=== PATIENT | female | born 1955 | race Caucasian/White ===

== ENCOUNTER 2020-02-03 09:07 | Emergency (ER) | payer OTHER ==
--- OUTSIDE RECORDS SUMMARY | 2020-02-03 09:34 | XMS REPORT | Clinical Summary ---
:1955 Author Organization [facility] Address [address] [place] [address] Care Team Providers Name Role Phone Gauri Singleton MD Primary Care Provider Allergies No Known Allergies Medications Medication Sig Dispensed Refills Start Date End Date Status metoprolol (LOPRESSOR) Take 25 mg by 0 Active 25 MG tablet mouth 2 (two) times daily. losartan-hydroCHLOROthi Take 1 tablet by 0 Active azide (HYZAAR) 100-25 mouth daily. mg per tablet lisinopril Take 10 mg by 0 Activ e (PRINIVIL,ZESTRIL) 10 mouth daily. MG tablet budesonide-formoterol Inhale 2 puffs by 0 Active (SYMBICORT) 160-4.5 mouth via inhaler mcg/actuation inhaler 2 (two) times daily. atorvastatin (LIPITOR) Take 10 mg by 0 Active 10 MG tablet mouth daily. 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 Never 05/30/2018 How many drinks containing alcohol do you have on a typical Not asked day when you are drinking? How often do you have six or more drinks on one occasion? No t asked Sex Assigned at Date Recorded Not on file Last Filed Vital Signs Not on file Plan of Treatment Not on file Implants Implanted Type Area Break Up Worker Device Shelf Model / Serial / Identifier Expiration Lot Date Stent Bili Duodenal [id number] - [id number] Stents-P [employer] 05/01/2019 3434 / Implanted: Qty: 1 on 06/21/2018 by Marlene Romero MD at [facility] eriphera 087 [id number] / [id number] Results Not on fileafter 02/02/2019 Insurance Payer Benefit Plan / Subscriber ID Effective Dates Phone Addre ss Type Group BLUE BCBS ADV HMO [id number] 2018-Presen [phone] [id number] CROSS/BLUE EXCHANGE t 2 [facility] [id number] Advance Directives For more information, please contact: [phone] Code Status Date Activated Date Inactivated Comments Full Code 06/19/2018 12:15 PM 06/23/2018 5:46 PM This code status was determined by: Patient Full Code 06/19/2018 6:40 AM 06/19/2018 12:15 PM This code status was determined by: Patient
--- OUTSIDE RECORDS SUMMARY | 2020-02-03 09:35 | XMS REPORT | Continuity of Care Document ---
:1955 Author Organization [facility] t Address [address] [place] [address] [address] [place] [address] Care Team Providers Name Role Phone Gauri Mcgee MD Primary Care Physician ANIL Attending Clinician Unavailable ANIL Admitting Clinician Unavailable Problems Condition Condition Condition Status Onset Resolution Last Treating Co mments Source Name Details Category Date Date Treatment Clinician Date Cholecysto Cholecysto Disease Active [facility] 00 Center Allergies, Adverse Reactions, Alerts This patient has no known allergies or adverse reactions. Social History Social Habit Start Date Stop Date Quantity Comments Source History SDOH [facility] - Alcohol Std Drinks Medica l Center History SDOH [facility] - Alcohol Binge Medical Kendra ter Sex Assigned At [facility] Cigarettes smoked 2018-08-14 2018-08-14 [facility] - current (pack per 00:00:00 00:00:00 Medical Center day) - Reported Cigarette 2018-08-14 2018-08-14 [facility] - pack-years 00:00:00 00:00:00 [facility] Tobacco use and 2018-08-14 2018-08-[address] [facility] - exposure 00:00:00 00:00:00 [facility] Alcohol intake 2018-08-14 2018-08-14 [facility] - [facility] 00:00:00 alcohol (finding) [facility] History SDOH 2018-05-30 2018-05-[address] [facility] - Alcohol Frequency 00:00:00 00:00:00 [facility] Alcohol Comment 2018-05-30 2018-05-[address] [facility] - 00:00:00 00:00:00 [facility] Smoking Status Start Date Stop Date Source Current every day smoker 2018-08-14 00:00:[address] [facility] Medications Ordered Filled Start Stop Current Ordering Indication Dosage Frequency Signature Comments Components Source Medication Medication Date Date Medication? Clinician (SIG) Name Name metoprolol Yes 25mg Q.5D Take [address] (LOPRESSOR) 5-01 by mouth 2 [facility] - 25 MG 15:16: (two) Medical tablet 59 times Center daily. losartan-hy Yes 1{tbl} QD Take [address] droCHLOROth 5-01 tablet by Kandis es - iazide 15:16: mouth Medical (HYZAAR) 59 daily. Center 100-25 mg per tablet lisinopril Yes 10mg QD Take [address] (PRINIVIL,Z 5-01 by mouth Luke s - ESTRIL) 10 15:16: daily. Medic al MG tablet 59 Center budesonide- Yes 2{puff} Q.5D Inhale [address] formoterol 5-01 puffs by [facility] - (SYMBICORT) 15:16: mouth via M edical 160-4.5 59 inhaler 2 Center mcg/actuati (two) on inhaler times daily. atorvastati Yes 10mg QD Take [address] [facility] (LIPITOR) 5-01 by mouth Luke s - 10 MG 15:16: daily. Medical tablet 59 Center Procedures This patient has no known procedures. Results Test Description Test Time Test Comments Results Result Sourc e Comments [place], ERCP 2018-08-14 Reason for FINAL REPORT PATIENT ID: 16:17:00 exam:->disorde [id number] ERCP, r of bile duct 08/14/2018 Clinical History: Bile duct disorder Impression: Intraoperative images are obtained. The radiologist is not present during the procedure. Fluoroscopy was not performed by the undersigned. Images are presented for interpretation at the completion of the procedure. Please refer to the procedure report for more details. Three images submitted demonstrating interrogation of the common duct with fluoroscopy time of 2.5 minutes. Signed: Gely Arguello MDReport Verified Date/Time: 08/14/2018 16:17:18 Reading Location: [address] Radiology Reading Room UE EXAM 2018-06-27 Surgical Pathology 15:23:00 Report Case: [id number] Authorizing Provider: Eugenio Fatima MD Collected: 06/19/2018 1034 Ordering Location: [facility] PERIOPERATIVE Received: 06/19/2018 1044 SERVICES Pathologist: Dianne Irene MD Specimen: Gallbladder, Ink = Cystic Duct A. GALLBLADDER, OPEN CHOLECYSTECTOMY AND CLOSURE OF CHOLECYSTODUODENAL FISTULA: - GALLBLADDER WITH TRANSMURAL CHRONIC INFLAMMATION, FOREIGN BODY GIANT CELL REACTION AND FORMATION OF FISTULA TRACT - TWO BENIGN LYMPH NODES (0/2) - NEGATIVE FOR DYSPLASIA AND MALIGNANCY Signing Pathologist Direct Phone Line: [phone] ly signed by Dianne Irene MD on 06/27/2018 at 3:23 [id number] yordy, fistulaGallbladder = cystic ductThe specimen is received fresh labeled "gallbladder" and consists of a 4.5 x 2.5 x 1.5 cm gallbladder with black ink designated by the surgeon as "cystic duct margin". The serosa is smooth and glistening with 1 x 1 x 1 cm subserosal lymph node. On opening the mucosal lining is smooth and there is fistula tract in the fundus of the gallbladder measuring 0.8 cm in diameter . The lumen of the fistula is smooth. There is no mass or stone identified grossly. The wall thickness of the gallblader is 0.8 cm in the thickened area. Ink code: black, cystic duct margin; green, cystic duct lumen. Section code: A1FS, cystic duct margin; A2FS and A3FS, possible fistula tract; A4FS, lymph node civil rights representative. A5FS, gallbladder, wall thicknend; A6, margin fistula, ink side down; A8, remainder of lymph node. The remainder of the specimen is serially sectioned and submitted entirely in cassettes A8 through A19. WA/plPATHOLOGY DIAGNOSIS:GALLBLADDER, CHOLECYSTECTOMY, A1FS: - CYSTIC DUCT MARGIN NEGATIVE FOR MALIGNANCY A2FS, A3FS: - POSSIBLE FISTULA TRACT - NEGATIVE FOR [id number]: LYMPH NODE, DOOR TO DOOR SALESPERSON SECTION: - ONE BENIGN LYMPH [id number]: GALLBLADDER WALL, THICKENED: - NEGATIVE FOR MALIGNANCY PHOSPHORUS 2018-06-23 07:14:00 Test Item Value Reference Range Interpretation Comme nts PHOSPHORUS (BEAKER) (test code = 604) 3.0 mg/dL 2.3-4.7 [id number] 07:14:00 Test Item Value Reference Range Interpretation Comments MAGNESIUM (BEAKER) (test code = 1.8 mg/dL 1.6-2.6 627) BASIC METABOLIC [id number] 07:14:00 Test Item Value Reference Range Interpretation Comments SODIUM (BEAKER) 135 meq/L 136-145 L (test code = 381) POTASSIUM (BEAKER) 4.1 meq/L 3.5-5.1 (test code = 379) CHLORIDE (BEAKER) 103 meq/L 98-107 (test code = 382) CO2 (BEAKER) (test 26 meq/L 22-29 code = 355) BLOOD UREA NITROGEN 10 mg/dL 7-21 (BEAKER) (test code = 354) CREATININE (BEAKER) 0.69 mg/dL 0.57-1.25 (test code = 358) GLUCOSE RANDOM 121 mg/dL 70-105 H (BEAKER) (test code = 652) CALCIUM (BEAKER) 8.7 mg/dL 8.4-10.2 (test code = 697) EGFR (BEAKER) (test 86 mL/min/1.73 ESTIMA JASON GFR IS code = 1092) sq m NOT ACCURATE CREATININE CLEARANCE IN PREDICTING GLOMERULAR FILTRATION RATE . ESTIMATED GFR I S NOT APPLICABLE FOR DIALYSIS PATIEN TS. HEPATIC FUNCTION [id number] 07:14:00 Test Item Value Reference Range Interpretation Comments TOTAL PROTEIN (BEAKER) (test code = 5.9 gm/dL 6.0-8.3 L 770) ALBUMIN (BEAKER) (test code = 1145) 2.9 g/dL 3.5-5.0 L BILIRUBIN TOTAL (BEAKER) (test code 0.8 mg/dL 0.2-1.2 = 377) BILIRUBIN DIRECT (BEAKER) (test 0.5 mg/dL 0.1-0.5 code = 706) ALKALINE PHOSPHATASE (BEAKER) (test 77 U/L 40-150 code = 346) AST (SGOT) (BEAKER) (test code = 24 U/L 5-34 353) ALT (SGPT) (BEAKER) (test code = 26 U/L 6-55 347) CBC W/PLT COUNT & AUTO [id number] 06:43:00 Test Item Value Reference Range Interpretation Comments WHITE BLOOD CELL COUNT (BEAKER) 15.5 K/ L 3.5-10.5 H (test code = 775) RED BLOOD CELL COUNT (BEAKER) 3.63 M/ L 3.93-5.22 L (test code = 761) HEMOGLOBIN (BEAKER) (test code = 11.1 GM/DL 11.2-15.7 L 410) HEMATOCRIT (BEAKER) (test code = 35.9 % 34.1-44.9 411) MEAN CORPUSCULAR VOLUME (BEAKER) 98.9 fL 79.4-94.8 H (test code = 753) MEAN CORPUSCULAR HEMOGLOBIN 30.6 pg 25.6-32.2 (BEAKER) (test code = 751) MEAN CORPUSCULAR HEMOGLOBIN CONC 30.9 GM/DL 32.2-35.5 L (BEAKER) (test code = 752) RED CELL DISTRIBUTION WIDTH 12.9 % 11.7-14.4 (BEAKER) (test code = 412) PLATELET COUNT (BEAKER) (test 388 K/CU MM 150-450 code = 756) MEAN PLATELET VOLUME (BEAKER) 10.4 fL 9.4-12.3 (test code = 754) NUCLEATED RED BLOOD CELLS 0 /100 WBC 0-0 (BEAKER) (test code = 413) NEUTROPHILS RELATIVE PERCENT 61 % (BEAKER) (test code = 429) LYMPHOCYTES RELATIVE PERCENT 26 % (BEAKER) (test code = 430) MONOCYTES RELATIVE PERCENT 6 % (BEAKER) (test code = 431) EOSINOPHILS RELATIVE PERCENT 6 % (BEAKER) (test code = 432) BASOPHILS RELATIVE PERCENT 1 % (BEAKER) (test code = 437) NEUTROPHILS ABSOLUTE COUNT 9.41 K/ L 1.56-6.13 H (BEAKER) (test code = 670) LYMPHOCYTES ABSOLUTE COUNT 4.03 K/ L 1.18-3.74 H (BEAKER) (test code = 414) MONOCYTES ABSOLUTE COUNT (BEAKER) 0.85 K/ L 0.24-0.36 H (test code = 415) EOSINOPHILS ABSOLUTE COUNT 0.98 K/ L 0.04-0.36 H (BEAKER) (test code = 416) BASOPHILS ABSOLUTE COUNT (BEAKER) 0.10 K/ L 0.01-0.08 H (test code = 417) IMMATURE GRANULOCYTES-RELATIVE 1 % 0-1 PERCENT (BEAKER) (test code = 2801) BASIC METABOLIC [id number] 07:39:00 Test Item Value Reference Range Interpretation Comments SODIUM (BEAKER) 138 meq/L 136-145 (test code = 381) POTASSIUM (BEAKER) 4.4 meq/L 3.5-5.1 (test code = 379) CHLORIDE (BEAKER) 103 meq/L 98-107 (test code = 382) CO2 (BEAKER) (test 28 meq/L 22-29 code = 355) BLOOD UREA NITROGEN 10 mg/dL 7-21 (BEAKER) (test code = 354) CREATININE (BEAKER) 0.72 mg/dL 0.57-1.25 (test code = 358) GLUCOSE RANDOM 115 mg/dL 70-105 H (BEAKER) (test code = 652) CALCIUM (BEAKER) 9.0 mg/dL 8.4-10.2 (test code = 697) EGFR (BEAKER) (test 82 mL/min/1.73 ESTIMA JASON GFR IS code = 1092) sq m NOT ACCURATE CREATININE CLEARANCE IN PREDICTING GLOMERULAR FILTRATION RATE . ESTIMATED GFR I S NOT APPLICABLE FOR DIALYSIS PATIEN TS. [id number] 06:49:00 Test Item Value Reference Range Interpretation Comments MAGNESIUM (BEAKER) (test code = 2.3 mg/dL 1.6-2.6 627) HEPATIC FUNCTION [id number] 06:49:00 Test Item Value Reference Range Interpretation Comments TOTAL PROTEIN (BEAKER) (test code = 6.6 gm/dL 6.0-8.3 770) ALBUMIN (BEAKER) (test code = 1145) 3.2 g/dL 3.5-5.0 L BILIRUBIN TOTAL (BEAKER) (test code 0.8 mg/dL 0.2-1.2 = 377) BILIRUBIN DIRECT (BEAKER) (test 0.5 mg/dL 0.1-0.5 code = 706) ALKALINE PHOSPHATASE (BEAKER) (test 88 U/L 40-150 code = 346) AST (SGOT) (BEAKER) (test code = 36 U/L 5-34 H 353) ALT (SGPT) (BEAKER) (test code = 36 U/L 6-55 347) [id number] 06:48:00 Test Item Value Reference Range Interpretation Comments PHOSPHORUS (BEAKER) (test code = 2.7 mg/dL 2.3-4.7 604) CBC W/PLT COUNT & AUTO [id number] 06:39:00 Test Item Value Reference Range Interpretation Comments WHITE BLOOD CELL COUNT (BEAKER) 20.8 K/ L 3.5-10.5 H (test code = 775) RED BLOOD CELL COUNT (BEAKER) 3.80 M/ L 3.93-5.22 L (test code = 761) HEMOGLOBIN (BEAKER) (test code = 11.8 GM/DL 11.2-15.7 410) HEMATOCRIT (BEAKER) (test code = 37.8 % 34.1-44.9 411) MEAN CORPUSCULAR VOLUME (BEAKER) 99.5 fL 79.4-94.8 H (test code = 753) MEAN CORPUSCULAR HEMOGLOBIN 31.1 pg 25.6-32.2 (BEAKER) (test code = 751) MEAN CORPUSCULAR HEMOGLOBIN CONC 31.2 GM/DL 32.2-35.5 L (BEAKER) (test code = 752) RED CELL DISTRIBUTION WIDTH 13.0 % 11.7-14.4 (BEAKER) (test code = 412) PLATELET COUNT (BEAKER) (test 411 K/CU MM 150-450 code = 756) MEAN PLATELET VOLUME (BEAKER) 10.5 fL 9.4-12.3 (test code = 754) NUCLEATED RED BLOOD CELLS 0 /100 WBC 0-0 (BEAKER) (test code = 413) NEUTROPHILS RELATIVE PERCENT 66 % (BEAKER) (test code = 429) LYMPHOCYTES RELATIVE PERCENT 23 % (BEAKER) (test code = 430) MONOCYTES RELATIVE PERCENT 5 % (BEAKER) (test code = 431) EOSINOPHILS RELATIVE PERCENT 5 % (BEAKER) (test code = 432) BASOPHILS RELATIVE PERCENT 1 % (BEAKER) (test code = 437) NEUTROPHILS ABSOLUTE COUNT 13.85 K/ L 1.56-6.13 H (BEAKER) (test code = 670) LYMPHOCYTES ABSOLUTE COUNT 4.70 K/ L 1.18-3.74 H (BEAKER) (test code = 414) MONOCYTES ABSOLUTE COUNT (BEAKER) 0.95 K/ L 0.24-0.36 H (test code = 415) EOSINOPHILS ABSOLUTE COUNT 0.98 K/ L 0.04-0.36 H (BEAKER) (test code = 416) BASOPHILS ABSOLUTE COUNT (BEAKER) 0.13 K/ L 0.01-0.08 H (test code = 417) IMMATURE GRANULOCYTES-RELATIVE 1 % 0-1 PERCENT (BEAKER) (test code = 2801) AR, [id number] 19:52:00Reason for exam:->Bile leakFINAL REPORT Intraoperative fluoroscopy. CLINICAL HISTORY: Bile leak. FINDINGS : Four fluoroscopically acquired images were acquired by the referring physician. An intraoperative verbal report was not requested. Fluoroscopy was not performed by the undersigned. Fluoroscopy time: 90 seconds. Four images. Signed: Dain Owen MDReport Verified Date/Time: 06/21/2018 19:52:37 Sabina jasso Location: [facility] [id number] [facility] Consult Reading Room CBC W/PLT COUNT & AUTO [id number] 08:03:00 Test Item Value Reference Range Interpretation Comments WHITE BLOOD CELL COUNT (BEAKER) 26.8 K/ L 3.5-10.5 H (test code = 775) RED BLOOD CELL COUNT (BEAKER) 4.04 M/ L 3.93-5.22 (test code = 761) HEMOGLOBIN (BEAKER) (test code = 12.4 GM/DL 11.2-15.7 410) HEMATOCRIT (BEAKER) (test code = 40.4 % 34.1-44.9 411) MEAN CORPUSCULAR VOLUME (BEAKER) 100.0 fL 79.4-94.8 H (test code = 753) MEAN CORPUSCULAR HEMOGLOBIN 30.7 pg 25.6-32.2 (BEAKER) (test code = 751) MEAN CORPUSCULAR HEMOGLOBIN CONC 30.7 GM/DL 32.2-35.5 L (BEAKER) (test code = 752) RED CELL DISTRIBUTION WIDTH 13.2 % 11.7-14.4 (BEAKER) (test code = 412) PLATELET COUNT (BEAKER) (test 426 K/CU MM 150-450 code = 756) MEAN PLATELET VOLUME (BEAKER) 10.0 fL 9.4-12.3 (test code = 754) NUCLEATED RED BLOOD CELLS 0 /100 WBC 0-0 (BEAKER) (test code = 413) (CELLAVISION MANUAL DIFF)2018-06-21 08:03:00 Test Item Value Reference Range Interpretation Comments NEUTROPHILS - REL 75 % (CELLAVISION)(BEAKER) (test code = 2816) LYMPHOCYTES - REL 13 % (CELLAVISION)(BEAKER) (test code = 2817) MONOCYTES - REL 3 % (CELLAVISION)(BEAKER) (test code = 2818) EOSINOPHILS - REL 6 % (CELLAVISION)(BEAKER) (test code = 2819) BANDS - REL (CELLAVISION)(BEAKER) 1 % 0-10 (test code = 2826) ATYPICAL LYMPHOCYTES - REL 2 % 0-0 H (CELLAVISION)(BEAKER) (test code = 2829) NEUTROPHILS - ABS 20.10 K/ul 1.56-6.13 H (CELLAVISION)(BEAKER) (test code = 2830) LYMPHOCYTES - ABS 3.48 K/ul 1.18-3.74 (CELLAVISION)(BEAKER) (test code = 2831) MONOCYTES - ABS 0.80 K/uL 0.24-0.36 H (CELLAVISION)(BEAKER) (test code = 2832) EOSINOPHILS - ABS 1.61 K/uL 0.04-0.36 H (CELLAVISION)(BEAKER) (test code = 2834) BANDS - ABS (CELLAVISION)(BEAKER) 0.27 K/uL 0.00-0.80 (test code = 2840) ATYPICAL LYMPHOCYTES - ABS 0.54 K/uL 0.00-0.00 H (CELLAVISION)(BEAKER) (test code = 2858) TOTAL COUNTED (BEAKER) (test code 100 = 1351) RBC MORPHOLOGY (BEAKER) (test code Normal = 762) PLT MORPHOLOGY (BEAKER) (test code Normal = 486) SMUDGE CELLS (BEAKER) (test code = Present 1371) PLATELET CONCENTRATION Adequate (CELLAVISION)(BEAKER) (test code = 3438) Received comment: User comments: Slide comments:[id number] 05:10:00 Test Item Value Reference Range Interpretation Comments PHOSPHORUS (BEAKER) (test code = 2.6 mg/dL 2.3-4.7 604) [id number] 05:10:00 Test Item Value Reference Range Interpretation Comments MAGNESIUM (BEAKER) (test code = 1.8 mg/dL 1.6-2.6 627) BASIC METABOLIC [id number] 05:10:00 Test Item Value Reference Range Interpretation Comments SODIUM (BEAKER) 136 meq/L 136-145 (test code = 381) POTASSIUM (BEAKER) 4.6 meq/L 3.5-5.1 (test code = 379) CHLORIDE (BEAKER) 102 meq/L 98-107 (test code = 382) CO2 (BEAKER) (test 27 meq/L 22-29 code = 355) BLOOD UREA NITROGEN 10 mg/dL 7-21 (BEAKER) (test code = 354) CREATININE (BEAKER) 0.79 mg/dL 0.57-1.25 (test code = 358) GLUCOSE RANDOM 125 mg/dL 70-105 H (BEAKER) (test code = 652) CALCIUM (BEAKER) 9.4 mg/dL 8.4-10.2 (test code = 697) EGFR (BEAKER) (test 74 mL/min/1.73 ESTIMA JASON GFR IS code = 1092) sq m NOT ACCURATE CREATININE CLEARANCE IN PREDICTING GLOMERULAR FILTRATION RATE . ESTIMATED GFR I S NOT APPLICABLE FOR DIALYSIS PATIEN TS. HEPATIC FUNCTION [id number] 05:10:00 Test Item Value Reference Range Interpretation Comments TOTAL PROTEIN (BEAKER) (test code = 6.8 gm/dL 6.0-8.3 770) ALBUMIN (BEAKER) (test code = 1145) 3.4 g/dL 3.5-5.0 L BILIRUBIN TOTAL (BEAKER) (test code 1.1 mg/dL 0.2-1.2 = 377) BILIRUBIN DIRECT (BEAKER) (test 0.5 mg/dL 0.1-0.5 code = 706) ALKALINE PHOSPHATASE (BEAKER) (test 94 U/L 40-150 code = 346) AST (SGOT) (BEAKER) (test code = 44 U/L 5-34 H 353) ALT (SGPT) (BEAKER) (test code = 43 U/L 6-55 347) CBC W/PLT COUNT & AUTO [id number] 09:22:00 Test Item Value Reference Range Interpretation Comments WHITE BLOOD CELL COUNT (BEAKER) 28.8 K/ L 3.5-10.5 H (test code = 775) RED BLOOD CELL COUNT (BEAKER) 3.76 M/ L 3.93-5.22 L (test code = 761) HEMOGLOBIN (BEAKER) (test code = 11.7 GM/DL 11.2-15.7 410) HEMATOCRIT (BEAKER) (test code = 37.5 % 34.1-44.9 411) MEAN CORPUSCULAR VOLUME (BEAKER) 99.7 fL 79.4-94.8 H (test code = 753) MEAN CORPUSCULAR HEMOGLOBIN 31.1 pg 25.6-32.2 (BEAKER) (test code = 751) MEAN CORPUSCULAR HEMOGLOBIN CONC 31.2 GM/DL 32.2-35.5 L (BEAKER) (test code = 752) RED CELL DISTRIBUTION WIDTH 13.0 % 11.7-14.4 (BEAKER) (test code = 412) PLATELET COUNT (BEAKER) (test 433 K/CU MM 150-450 code = 756) MEAN PLATELET VOLUME (BEAKER) 10.4 fL 9.4-12.3 (test code = 754) NUCLEATED RED BLOOD CELLS 0 /100 WBC 0-0 (BEAKER) (test code = 413) (CELLAVISION MANUAL DIFF)2018-06-20 09:22:00 Test Item Value Reference Range Interpretation Comments NEUTROPHILS - REL 85 % (CELLAVISION)(BEAKER) (test code = 2816) LYMPHOCYTES - REL 10 % (CELLAVISION)(BEAKER) (test code = 2817) MONOCYTES - REL 3 % (CELLAVISION)(BEAKER) (test code = 2818) BANDS - REL (CELLAVISION)(BEAKER) 2 % 0-10 (test code = 2826) NEUTROPHILS - ABS 24.48 K/ul 1.56-6.13 H (CELLAVISION)(BEAKER) (test code = 2830) LYMPHOCYTES - ABS 2.88 K/ul 1.18-3.74 (CELLAVISION)(BEAKER) (test code = 2831) MONOCYTES - ABS 0.86 K/uL 0.24-0.36 H (CELLAVISION)(BEAKER) (test code = 2832) BANDS - ABS (CELLAVISION)(BEAKER) 0.58 K/uL 0.00-0.80 (test code = 2840) TOTAL COUNTED (BEAKER) (test code 100 = 1351) RBC MORPHOLOGY (BEAKER) (test code Normal = 762) WBC MORPHOLOGY (BEAKER) (test code Normal = 487) PLT MORPHOLOGY (BEAKER) (test code Normal = 486) ARTIFACT (CELLAVISION)(BEAKER) Present (test code = 3432) PLATELET CONCENTRATION Adequate (CELLAVISION)(BEAKER) (test code = 3438) Received comment: User comments: Slide comments:[id number] 05:07:00 Test Item Value Reference Range Interpretation Comments PHOSPHORUS (BEAKER) (test code = 2.4 mg/dL 2.3-4.7 604) [id number] 05:07:00 Test Item Value Reference Range Interpretation Comments MAGNESIUM (BEAKER) (test code = 1.9 mg/dL 1.6-2.6 627) BASIC METABOLIC [id number] 05:07:00 Test Item Value Reference Range Interpretation Comments SODIUM (BEAKER) 138 meq/L 136-145 (test code = 381) POTASSIUM (BEAKER) 4.6 meq/L 3.5-5.1 (test code = 379) CHLORIDE (BEAKER) 106 meq/L 98-107 (test code = 382) CO2 (BEAKER) (test 24 meq/L 22-29 code = 355) BLOOD UREA NITROGEN 12 mg/dL 7-21 (BEAKER) (test code = 354) CREATININE (BEAKER) 0.77 mg/dL 0.57-1.25 (test code = 358) GLUCOSE RANDOM 161 mg/dL 70-105 H (BEAKER) (test code = 652) CALCIUM (BEAKER) 9.1 mg/dL 8.4-10.2 (test code = 697) EGFR (BEAKER) (test 76 mL/min/1.73 ESTIMA JASON GFR IS code = 1092) sq m NOT ACCURATE CREATININE CLEARANCE IN PREDICTING GLOMERULAR FILTRATION RATE . ESTIMATED GFR I S NOT APPLICABLE FOR DIALYSIS PATIEN TS. HEPATIC FUNCTION [id number] 05:07:00 Test Item Value Reference Range Interpretation Comments TOTAL PROTEIN (BEAKER) (test code = 6.3 gm/dL 6.0-8.3 770) ALBUMIN (BEAKER) (test code = 1145) 3.3 g/dL 3.5-5.0 L BILIRUBIN TOTAL (BEAKER) (test code 0.6 mg/dL 0.2-1.2 = 377) BILIRUBIN DIRECT (BEAKER) (test 0.4 mg/dL 0.1-0.5 code = 706) ALKALINE PHOSPHATASE (BEAKER) (test 88 U/L 40-150 code = 346) AST (SGOT) (BEAKER) (test code = 41 U/L 5-34 H 353) ALT (SGPT) (BEAKER) (test code = 43 U/L 6-55 347) BASIC METABOLIC [id number] 07:27:00 Test Item Value Reference Range Interpretation Comments SODIUM (BEAKER) 140 meq/L 136-145 (test code = 381) POTASSIUM (BEAKER) 4.4 meq/L 3.5-5.1 (test code = 379) CHLORIDE (BEAKER) 105 meq/L 98-107 (test code = 382) CO2 (BEAKER) (test 28 meq/L 22-29 code = 355) BLOOD UREA NITROGEN 11 mg/dL 7-21 (BEAKER) (test code = 354) CREATININE (BEAKER) 0.83 mg/dL 0.57-1.25 (test code = 358) GLUCOSE RANDOM 138 mg/dL 70-105 H (BEAKER) (test code = 652) CALCIUM (BEAKER) 9.4 mg/dL 8.4-10.2 (test code = 697) EGFR (BEAKER) (test 69 mL/min/1.73 ESTIMA JASON GFR IS code = 1092) sq m NOT ACCURATE CREATININE CLEARANCE IN PREDICTING GLOMERULAR FILTRATION RATE . ESTIMATED GFR I S NOT APPLICABLE FOR DIALYSIS PATIEN TS. CBC W/PLT COUNT & AUTO [id number] 07:14:00 Test Item Value Reference Range Interpretation Comments WHITE BLOOD CELL COUNT (BEAKER) 13.3 K/ L 3.5-10.5 H (test code = 775) RED BLOOD CELL COUNT (BEAKER) 4.03 M/ L 3.93-5.22 (test code = 761) HEMOGLOBIN (BEAKER) (test code = 12.4 GM/DL 11.2-15.7 410) HEMATOCRIT (BEAKER) (test code = 39.6 % 34.1-44.9 411) MEAN CORPUSCULAR VOLUME (BEAKER) 98.3 fL 79.4-94.8 H (test code = 753) MEAN CORPUSCULAR HEMOGLOBIN 30.8 pg 25.6-32.2 (BEAKER) (test code = 751) MEAN CORPUSCULAR HEMOGLOBIN CONC 31.3 GM/DL 32.2-35.5 L (BEAKER) (test code = 752) RED CELL DISTRIBUTION WIDTH 12.9 % 11.7-14.4 (BEAKER) (test code = 412) PLATELET COUNT (BEAKER) (test 413 K/CU MM 150-450 code = 756) MEAN PLATELET VOLUME (BEAKER) 10.0 fL 9.4-12.3 (test code = 754) NUCLEATED RED BLOOD CELLS 0 /100 WBC 0-0 (BEAKER) (test code = 413) NEUTROPHILS RELATIVE PERCENT 58 % (BEAKER) (test code = 429) LYMPHOCYTES RELATIVE PERCENT 30 % (BEAKER) (test code = 430) MONOCYTES RELATIVE PERCENT 6 % (BEAKER) (test code = 431) EOSINOPHILS RELATIVE PERCENT 5 % (BEAKER) (test code = 432) BASOPHILS RELATIVE PERCENT 1 % (BEAKER) (test code = 437) NEUTROPHILS ABSOLUTE COUNT 7.77 K/ L 1.56-6.13 H (BEAKER) (test code = 670) LYMPHOCYTES ABSOLUTE COUNT 4.01 K/ L 1.18-3.74 H (BEAKER) (test code = 414) MONOCYTES ABSOLUTE COUNT (BEAKER) 0.75 K/ L 0.24-0.36 H (test code = 415) EOSINOPHILS ABSOLUTE COUNT 0.64 K/ L 0.04-0.36 H (BEAKER) (test code = 416) BASOPHILS ABSOLUTE COUNT (BEAKER) 0.09 K/ L 0.01-0.08 H (test code = 417) IMMATURE GRANULOCYTES-RELATIVE 1 % 0-1 PERCENT (BEAKER) (test code = 2801)
[2020-02-03] MEDS ORDERED: HYDROCODONE/APAP 10/325 TAB ONE (10:16)
[2020-02-03 10:20] LABS: Absolute Lymphocytes (CBC) 3.9 K/uL (0.7-4.9); Hematocrit 45.6 % (36.0-45.0); Lymphocytes % 28.9 % (15.3-44.8); MPV 8.2 fL (7.6-11.3); RBC Red Blood Cell Count 4.92 M/uL (3.86-4.86)
[2020-02-03 10:24] LABS: Protime INR 0.98
[2020-02-03 10:33] LABS: Potassium 4.4 mmol/L (3.5-5.1)
--- NOTE | 2020-02-03 12:31 | RAD REPORT ---
EXAM DESCRIPTION: US - Lower Extremity Arterial Bilat - 02/03/2020 12:14 pm CLINICAL HISTORY: PAIN COMPARISON: No comparisons TECHNIQUE: Bilateral lower extremity arterial Doppler examination was performed with waveform tracin g and velocity measurements. FINDINGS: Normal triphasic waveforms seen throughout the right lower extremity arterial system. Monophasic blunted waveforms are seen throughout the left lower extremity arterial system. No occlusi on seen. IMPRESSION: Diffuse pattern of monophasic blunted left lower extremity arterial waveforms. This like ly indicates an inflow stenosis. No significant right lower extremity arterial disease.
--- NOTE | 2020-02-03 12:37 | ER ---
Nurse's Notes [facility] [place] Name: Ivory Raza Age: 64 yrs Sex: Female : 1955 Arrival Date: 02/03/2020 Time: 09:11 Bed 15 Private MD: Diagnosis: Vaculopathic, stenotic left lower extremity vessels;Peripheral artery disease Presentation: 02/02 09:30 Chief complaint: left foot pain x 1 week. Sent for US of left leg yesterday, told she hb has no blood flow in left leg and to come to ED. Coronavirus screen: At this time, the client does not indicate any symptoms associated with coronavirus-19. Ebola Screen: No symptoms or risks identified at this time. Initial Sepsis Screen: Does the patient meet any 2 criteria? No. Patient's initial sepsis screen is negative. Does the patient have a suspected source of infection? No. Patient's initial sepsis screen is negative. Risk Assessment: Do you want to hurt yourself or someone else? Patient reports no desire to harm self or others. Onset of symptoms was January 27, 2020. 09:30 Method Of Arrival: Ambulatory hb 09:30 Acuity: HERB 3 hb Historical: - Allergies: 09:35 No Known Allergies; hb - Home Meds: 09:35 Metoprolol Tartrate Oral [Active]; Lisinopril Oral [Active]; hb - PMHx: 09:35 Kidney stones; Hypertension; hb 09:35 COPD; hb - PSHx: 09:35 Cholecystectomy; hb - Immunization history:: Adult Immunizations up to date. - Social history:: Smoking status: Patient reports the use of cigarette tobacco products, smokes one pack cigarettes per day. Screenin:12 Abuse screen: Denies threats or abuse. Denies injuries from another. Nutritional ss screening: No deficits noted. Tuberculosis screening: Never had TB. Fall Risk None identified. Assessment: 10:12 General: Appears in no apparent distress. comfortable, Behavior is calm, cooperative, ss Denies fever, feeling ill, fatigue, chills. Pain: Complains of pain in left fifth toe and Left fifth toenail Pain currently is 0 out of 10 on a pain scale. at worst was 9 out of 10 on a pain scale. Quality of pain is described as episodic throbbing Pain began 2-3 days ago. Is episodic. Pain: Pain. Neuro: Level of Consciousness is awake, alert, obeys commands, Oriented to person, place, time, situation. Cardiovascular: Pulses are palpable in right posterior tibial artery, right dorsalis pedis artery, left posterior tibial artery and left dorsalis pedis artery. Respiratory: Airway is patent Respiratory effort is even, unlabored, Respiratory pattern is regular, symmetrical. GI: Patient currently denies diarrhea, nausea, vomiting. : No signs and/or symptoms were reported regarding the genitourinary system. EENT: Oral mucosa is moist. Throat is clear. Derm: Bruising that is dark purple, on left fifth toe and Left fifth toenail. Musculoskeletal: Circulation, motion, and sensation intact. Range of motion: intact in all extremities, Swelling absent. 10:55 Reassessment: Pt in ultrasound at this time. ss 12:22 Reassessment: Patient appears in no apparent distress at this time. Patient and/or ss family updated on plan of care and expected duration. Pain level reassessed. Patient is alert, oriented x 3, equal unlabored respirations, skin warm/dry/pink. Awaiting US results Patient states feeling better. Vital Signs: 09:30 BP 148 / 88; Pulse 58; Resp 16; Temp 97.7; Pulse Ox 98% on R/A; Weight 122.92 kg; hb Height 5 ft. 7 in. (170.18 cm); Pain 0/10; 12:22 BP 171 / 87; Pulse 77; Resp 16; Pulse Ox 95% on R/A; Pain 0/10; ss 09:30 Body Mass Index 42.44 (122.92 kg, 170.18 cm) hb ED Course: 09:11 Patient arrived in ED. ds1 09:34 Triage completed. hb 09:35 Arm band placed on. hb 09:43 Mich Fuentes RN is Primary Nurse. jl7 09:43 Chanda Krueger FNP-C is PHCP. snw 09:43 Patrick Noble MD is Attending Physician. snw 10:09 Inserted saline lock: in left antecubital area, using aseptic technique. Blood ss collected. Patient maintains SpO2 saturation greater than 95% on room air. 10:12 Patient has correct armband on for positive identification. Bed in low position. Call ss light in reach. 11:07 US LE Arterial Bilateral In Process Unspecified. EDMS 13:00 No provider procedures requiring assistance completed. IV discontinued, intact, ss bleeding controlled, No redness/swelling at site. Pressure dressing applied. Administered Medications: 10:09 Drug: [place] 10 mg-325 mg 1 tabs Route: PO; 12:52 Follow up: Response: No adverse reaction; Pain is decreased ss 12:57 Drug: PlaVIX 300 mg Route: PO; 13:00 Follow up: Response: Medication administered at discharge. Outcome: 12:36 Discharge ordered by . snw 13:00 Discharged to home ambulatory, with family. 13:00 Condition: good 13:00 Discharge instructions given to patient, Instructed on discharge instructions, follow up and referral plans. medication usage, Demonstrated understanding of instructions, follow-up care, medications, Prescriptions given X 2. 13:00 Patient left the ED. Signatures: Dispatcher [employer] EDRI Chanda Krueger, RUBBER PROCESS HAND-C RUBBER PROCESS HAND-CsnMarie Ontiveros ds1 Ana Maria Hagen RN RN Dinora Cortes, Mich Gongora RN, RN RN jl7
--- NOTE | 2020-02-03 12:37 | EDPHYS ---
Physician Documentation [facility] Name: Ivory Raza Age: 64 yrs Sex: Female : 1955 Arrival Date: 02/03/2020 Time: 09:11 Bed 15 Private MD: ED Physician Patrick Noble HPI: 02/02 10:13 This 64 yrs old Female presents to ER via Ambulatory with complaints of Toe snw Issue. 10:13 Onset: The symptoms/episode began/occurred acutely, 1 week(s) ago, and became snw persistent. Associated signs and symptoms: Pertinent positives: left foot pain. The patient has not experienced similar symptoms in the past. pt had studies to take to Dr. Hanna. Found that her insurance has changed and no longer has a PCP. Historical: - Allergies: 09:35 No Known Allergies; hb - Home Meds: 09:35 Metoprolol Tartrate Oral [Active]; Lisinopril Oral [Active]; hb - PMHx: 09:35 Kidney stones; Hypertension; hb 09:35 COPD; hb - PSHx: 09:35 Cholecystectomy; hb - Immunization history:: Adult Immunizations up to date. - Social history:: Smoking status: Patient reports the use of cigarette tobacco products, smokes one pack cigarettes per day. ROS: 10:13 Constitutional: Negative for fever, chills, and weight loss, Eyes: Negative for injury, snw pain, redness, and discharge, ENT: Negative for injury, pain, and discharge, Neck: Negative for injury, pain, and swelling, Cardiovascular: Negative for chest pain, palpitations, and edema, Respiratory: Negative for shortness of breath, cough, wheezing, and pleuritic chest pain, Abdomen/GI: Negative for abdominal pain, nausea, vomiting, diarrhea, and constipation, Back: Negative for injury and pain, : Negative for injury, bleeding, discharge, and swelling, MS/Extremity: Negative for injury and deformity, Neuro: Negative for headache, weakness, numbness, tingling, and seizure, Psych: Negative for depression, anxiety, suicide ideation, homicidal ideation, and hallucinations. 10:13 Skin: Positive for "no blood flow to LLE". Exam: 10:11 Constitutional: This is a well developed, well nourished patient who is awake, alert, snw and in no acute distress. Head/Face: Normocephalic, atraumatic. Eyes: Pupils equal round and reactive to light, extra-ocular motions intact. Lids and lashes normal. Conjunctiva and sclera are non-icteric and not injected. Cornea within normal limits. Periorbital areas with no swelling, redness, or edema. ENT: Nares patent. No nasal discharge, no septal abnormalities noted. Tympanic membranes are normal and external auditory canals are clear. Oropharynx with no redness, swelling, or masses, exudates, or evidence of obstruction, uvula midline. Mucous membranes moist. Neck: Trachea midline, no thyromegaly or masses palpated, and no cervical lymphadenopathy. Supple, full range of motion without nuchal rigidity, or vertebral point tenderness. No Meningismus. Chest/axilla: Normal chest wall appearance and motion. Nontender with no deformity. No lesions are appreciated. Cardiovascular: Regular rate and rhythm with a normal S1 and S2. No gallops, murmurs, or rubs. Normal PMI, no JVD. No pulse deficits. Respiratory: Lungs have equal breath sounds bilaterally, clear to auscultation and percussion. No rales, rhonchi or wheezes noted. No increased work of breathing, no retractions or nasal flaring. Abdomen/GI: Soft, non-tender, with normal bowel sounds. No distension or tympany. No guarding or rebound. No evidence of tenderness throughout. Back: No spinal tenderness. No costovertebral tenderness. Full range of motion. MS/ Extremity: Pulses equal, no cyanosis. Neurovascular intact. Full, normal range of motion. Neuro: Awake and alert, GCS 15, oriented to person, place, time, and situation. Cranial nerves II-XII grossly intact. Motor strength 5/5 in all extremities. Sensory grossly intact. Cerebellar exam normal. Normal gait. Psych: Awake, alert, with orientation to person, place and time. Behavior, mood, and affect are within normal limits. 10:11 Skin: Appearance: normal except for affected area, pt with bilateral lower extremity pulses, however left 5th toe with cyanosis. Pt had US at [place] and it showed marked decrease blood flow to left lower ext. Pt began taking 650mg ASA yesterday. Smokes 1.5 ppd. Vital Signs: 09:30 BP 148 / 88; Pulse 58; Resp 16; Temp 97.7; Pulse Ox 98% on R/A; Weight 122.92 kg; hb Height 5 ft. 7 in. (170.18 cm); Pain 0/10; 12:22 BP 171 / 87; Pulse 77; Resp 16; Pulse Ox 95% on R/A; Pain 0/10; ss 09:30 Body Mass Index 42.44 (122.92 kg, 170.18 cm) hb MDM: 09:43 Patient medically screened. snw 14:09 Data reviewed: vital signs, nurses notes. Data interpreted: Pulse oximetry: on room air snw is 95 %. Interpretation: acceptable. Counseling: I had a detailed discussion with the patient and/or guardian regarding: the historical points, exam findings, and any diagnostic results supporting the discharge/admit diagnosis, the presence of at least one elevated blood pressure reading (>120/80) during this emergency department visit, radiology results, the need for outpatient follow up, to return to the emergency department if symptoms worsen or persist or if there are any questions or concerns that arise at home, smoking cessation. Special discussion: I have referred the patient to see his PCP for further evaluation of high blood pressure. Based on the history and exam findings, there is no indication for further emergent testing or inpatient evaluation. I discussed with the patient/guardian the need to see the party bus driver for further evaluation of the symptoms. I discussed with the patient/guardian the need to see the primary care provider for further evaluation of the symptoms. must stop smoking. 02/02 10:00 Order name: CBC with Diff; Complete Time: 10: ss 02/02 10:00 Order name: Chem 7; Complete Time: 10:49 ss 02/02 10:00 Order name: PT-INR; Complete Time: 10: ss 02/02 10:00 Order name: Ptt, Activated; Complete Time: 10: ss 02/02 10:00 Order name: US LE Arterial Bilateral; Complete Time: 12:33 ss Administered Medications: 10:09 Drug: [place] 10 mg-325 mg 1 tabs Route: PO; ss 12:52 Follow up: Response: No adverse reaction; Pain is decreased ss 12:57 Drug: PlaVIX 300 mg Route: PO; ss 13:00 Follow up: Response: Medication administered at discharge. ss Disposition: 02/03 06:34 Co-signature as Attending Physician, Patrick Noble MD I agree with the assessment and kdr plan of care. Disposition: 02/03/20 12:36 Discharged to Home. Impression: Vaculopathic, stenotic left lower extremity vessels, Peripheral artery disease. - Condition is Stable. - Discharge Instructions: Peripheral Vascular Disease, Steps to Quit Smoking, Smoking Hazards, Aspirin and Your Heart. - Prescriptions for Plavix 75 mg Oral Tablet - take 1 tablet by ORAL route once daily; 20 tablet. Ultram 50 mg Oral Tablet - take 1 tablet by ORAL route every 6 hours As needed; 12 tablet. - Medication Reconciliation Form, Thank You Letter, Antibiotic Education, Prescription Opioid Use form. - Follow up: Emergency Department; When: As needed; Reason: Worsening of condition. Follow up: Private Physician; When: 1 - 2 days; Reason: Recheck today's complaints, Continuance of care, Re-evaluation by your physician. Signatures: Dispatcher [employer] EDND Patrick Noble MD MD [facility] Chanda Krueger, JESICA-Renee CALIBRATION CHECKER-Ana Maria Zuniga RN RN Dinora Cortes RN RN Corrections: (The following items were deleted from the chart) 02/02 13:00 12:36 02/03/2020 12:36 Discharged to Home. Impression: Vaculopathic, stenotic left ss lower extremity vessels; Peripheral artery disease. Condition is Stable. Forms are Medication Reconciliation Form, Thank You Letter, Antibiotic Education, Prescription Opioid Use. Follow up: Emergency Department; When: As needed; Reason: Worsening of condition. Follow up: Private Physician; When: 1 - 2 days; Reason: Recheck today's complaints, Continuance of care, Re-evaluation by your physician. snw
[2020-02-03] MEDS ORDERED: CLOPIDOGREL 75 MG TABLET ONE (13:07)
[2020-02-03 13:11] VITALS: TEMP 97.7
[2020-02-03 13:12] VITALS: BP 171/87; O2SAT 95
== END 2020-02-03 13:00 | disposition home or self-care (01) ==
LOC: ER 09:07
DX: I70.202 Unspecified atherosclerosis of native arteries of extremities, left leg (principal); I10 Essential (primary) hypertension; F17.210 Nicotine dependence, cigarettes, uncomplicated; Z87.442 Personal history of urinary calculi
CPT/HCPCS: 36415; 80048; 85025; 85610; 85730; 93925; 99284